=== PATIENT | male | born 1965 | race Caucasian/White ===

== ENCOUNTER 2017-11-29 10:40 | Outpatient (CLI) | payer OTHER | END 2017-11-29 10:42 | disposition home or self-care (01) | LOC: EKG 10:40 | DX: N20.0 Calculus of kidney (principal); I10 Essential (primary) hypertension; E11.9 Type 2 diabetes mellitus without complications ==

== ENCOUNTER 2017-12-08 16:16 | Inpatient (IN) | payer OTHER ==
[~2017-12-08] VITALS: Ht 170.2 cm; Wt 106.1 kg
[2017-12-15] MEDS ORDERED: SINGULAIR10 MG PO (19:01)
[2017-12-15] MEDS ORDERED: LOSARTAN POTAS100 MG PO (19:01)
[2017-12-15] MEDS ORDERED: ZANTAC300 MG PO (19:01)
[2017-12-15] MEDS ORDERED: SYNTHROID100 MCG PO (19:01)
[2017-12-15] MEDS ORDERED: LIPITOR40 MG PO ×2 (19:02→19:04)
[2017-12-15] MEDS ORDERED: JANUVIA100 MG PO (19:02)
[2017-12-15] MEDS ORDERED: METFORMIN HCL850 MG PO (19:02)
[2017-12-15] MEDS ORDERED: ZETIA10 MG PO (19:02)
[2017-12-15] MEDS ORDERED: LOVAZA1 GM PO (19:03)
[2017-12-15] MEDS ORDERED: CLONAZEPAM1 MG PO (19:04)
[2017-12-15] MEDS ORDERED: PROZAC40 MG PO (19:04)
[2017-12-15] MEDS ORDERED: LANTUS SOL100 UNIT/1 (19:05)
[2017-12-15] MEDS ORDERED: RISPERDAL25 MG/2 M1 PO (19:05)
[2017-12-15] MEDS ORDERED: ZOCOR20 MG PO (19:06)
== END 2017-12-23 11:06 | disposition home or self-care (01) | DRG 661 ==
LOC: O/R 12-21 06:05 → SURH 12-21 06:05
PROVIDERS: Urology
PROC: 0TC48ZZ Extirpation of Matter from Left Kidney Pelvis, Via Natural or Artificial Opening Endoscopic (ICD-10-PCS; 2017-12-21)
PROC: BT1FZZZ Fluoroscopy of Left Kidney, Ureter and Bladder (ICD-10-PCS; 2017-12-21)
PROC: 0T778DZ Dilation of Left Ureter with Intraluminal Device, Via Natural or Artificial Opening Endoscopic (ICD-10-PCS; principal; 2017-12-21 07:15)
PROC: BT14YZZ Fluoroscopy of Kidneys, Ureters and Bladder using Other Contrast (ICD-10-PCS; 2017-12-23)
DX: N20.0 Calculus of kidney (principal); I10 Essential (primary) hypertension; E03.8 Other specified hypothyroidism; E11.9 Type 2 diabetes mellitus without complications